=== PATIENT | male | born 1925 | race Two or more races ===

== ENCOUNTER 2016-11-10 22:19 | Inpatient (IN) | payer MEDICARE, MEDICAID ==
[~2016-11-10] VITALS: Ht 182.9 cm; Wt 74.8 kg
[2016-11-10] MEDS ORDERED: MORPHINE SULFATE INJ 2 MG/ML DISP.SYRIN ONE (23:30)
[2016-11-10] MEDS ORDERED: MORPHINE SULFATE INJ 2 MG/ML DISP.SYRIN IV ONE (23:30)
[2016-11-10 23:38] LABS: BASOPHILS % (AUTO) 0.2 % (0.0-2.0); DIFF TOTAL % 100 %; EOSINOPHILS # (AUTO) 0.1 /CMM (0.0-0.7); EOSINOPHILS % (AUTO) 1.7 % (0.0-6.0); HEMATOCRIT 34 % (39-51); HEMOGLOBIN 11.5 g/dL (13.5-17.5); LYMPHOCYTES # (AUTO) 1.3 /CMM (0.8-4.8); LYMPHOCYTES % (AUTO) 18.9 % (20.0-44.0); MEAN CORPUSCULAR HEMOGLOBIN 32 PG (26.0-33.0); MEAN CORPUSCULAR HGB CONC 34 g/dl (31.0-36.0); MEAN CORPUSCULAR VOLUME 96 fL (80-96); MONOCYTES # (AUTO) 0.6 /CMM (0.1-1.30); MONOCYTES % (AUTO) 8.8 % (2.0-12.0); NEUTROPHILS % (AUTO) 70.4 % (43.0-81.0); PLATELET COUNT (AUTO) 243 /CMM (150-450); RED BLOOD CELL COUNT(AUTO) 3.55 MIL/uL (4.5-6.0); WHITE BLOOD COUNT (AUTO) 7.1 K/uL (4.3-11.0)
[2016-11-10] MEDS ORDERED: CHOL20004 PO (23:44)
[2016-11-10] MEDS ORDERED: PRAV20TA4 PO (23:44)
[2016-11-10] MEDS ORDERED: ACET500C4 PO (23:44)
[2016-11-10] MEDS ORDERED: ASPI-605 PO (23:44)
[2016-11-10] MEDS ORDERED: MEMA10TA PO (23:44)
[2016-11-10 23:45] LABS: CALCIUM, SERUM 8.5 mg/dL (8.5-10.1); CREATININE 1.2 mg/dL (0.6-1.3); POTASSIUM 3.5 mmol/L (3.5-5.1)
[2016-11-11] VITALS (9 sets, daily range): BP systolic 154–197; BP diastolic 77–101
[2016-11-11] LABS: INR 1.02 (0.87-1.13)
[2016-11-11] MEDS ORDERED: ENOXAPARIN SODIUM 40 MG/0.4 ML DISP.SYRIN SQ SCH (01:30)
[2016-11-11] MEDS ORDERED: ENOXAPARIN SODIUM 40 MG/0.4 ML DISP.SYRIN SQ ONE (01:56)
[2016-11-11] MEDS ORDERED: HYDROCODONE/APAP 5/325MG 1 EACH TABLET ONE (01:56)
[2016-11-11] MEDS: HYDROCODONE/APAP 5/325MG 1 EACH TABLET PO PRN ×3 (02:18→12:13)
[2016-11-11 08:11] LABS: ALBUMIN 3.4 g/dL (3.4-5.0); BILIRUBIN,TOTAL 0.5 mg/dL (0.2-1.0); CALCIUM, SERUM 8.6 mg/dL (8.5-10.1); CREATININE 0.9 mg/dL (0.6-1.3); POTASSIUM 3.9 mmol/L (3.5-5.1); TOTAL PROTEIN, SERUM 7.2 g/dL (6.4-8.2)
[2016-11-11 08:18] LABS: BASOPHILS % (AUTO) 0.3 % (0.0-2.0); DIFF TOTAL % 100 %; EOSINOPHILS # (AUTO) 0.2 /CMM (0.0-0.7); EOSINOPHILS % (AUTO) 2.3 % (0.0-6.0); HEMATOCRIT 38 % (39-51); HEMOGLOBIN 12.8 g/dL (13.5-17.5); LYMPHOCYTES # (AUTO) 1.1 /CMM (0.8-4.8); MEAN CORPUSCULAR HEMOGLOBIN 32 PG (26.0-33.0); MEAN CORPUSCULAR HGB CONC 33 g/dl (31.0-36.0); MEAN CORPUSCULAR VOLUME 95 fL (80-96); MONOCYTES # (AUTO) 0.7 /CMM (0.1-1.30); MONOCYTES % (AUTO) 9.3 % (2.0-12.0); NEUTROPHILS # (AUTO) 5.1 /CMM (1.8-8.9); NEUTROPHILS % (AUTO) 73.1 % (43.0-81.0); PLATELET COUNT (AUTO) 268 /CMM (150-450); RED BLOOD CELL COUNT(AUTO) 4.03 MIL/uL (4.5-6.0)
[2016-11-11] MEDS ORDERED: MEMA14CA PO (08:38)
[2016-11-11] MEDS ORDERED: CHOL100044 PO (08:38)
[2016-11-11] MEDS ORDERED: MISCELLANEOUS MED 1 EA EA XX ONE (12:00)
[2016-11-11] MEDS ORDERED: LABETALOL HCL (100MG) 100 MG TABLET PO PRN (15:30)
[2016-11-11] MEDS: AMLODIPINE BESYLATE 5 MG TABLET PO SCH (15:31)
[2016-11-11] MEDS: HYDROMORPHONE 1 MG/1 ML DISP.SYRIN IV PRN (16:44)
[2016-11-11] MEDS: MEMANTINE HCL 5 MG TABLET PO SCH (16:45)
[2016-11-11] MEDS ORDERED: BACI/NEOM/POLY B OINT PKT 1 UDPKT PACKET TP SCH (17:00)
[2016-11-11] MEDS: ONDANSETRON HCL/PF 4 MG/2 ML VIAL IV PRN (18:14)
[2016-11-11] MEDS ORDERED: ALBUTEROL HALF STRENGTH 1.25 MG/3 ML VIAL.NEB NEB PRN (20:00)
[2016-11-11] MEDS: ATORVASTATIN 10 MG TABLET PO SCH (21:33)
[2016-11-11] MEDS: ENOXAPARIN SODIUM 40 MG/0.4 ML DISP.SYRIN SQ SCH (21:37)
[2016-11-11] MEDS ORDERED: PRAVASTATIN SODIUM 20 MG TABLET PO SCH (22:00)
[2016-11-12] MEDS: HYDROCODONE/APAP 5/325MG 1 EACH TABLET PO PRN ×3 (04:21→22:45)
[2016-11-12 08:00] VITALS: BP 145/67
[2016-11-12] MEDS: ASPIRIN EC 81 MG TABLET.DR PO SCH (08:27)
[2016-11-12] MEDS: AMLODIPINE BESYLATE 5 MG TABLET PO SCH (08:27)
[2016-11-12] MEDS: CHOLECALCIFEROL 1,000 UNIT TABLET (VIT D3) PO SCH (08:28)
[2016-11-12] MEDS: SENNOSIDES 8.6 MG TABLET PO SCH (08:29)
[2016-11-12] MEDS: MEMANTINE HCL 5 MG TABLET PO SCH ×2 (08:29→16:48)
[2016-11-12] MEDS: NEOMY SULF/BACITRAC ZN/POLY 15 GM TUBE TP SCH (10:35)
[2016-11-12] MEDS: HYDROMORPHONE 1 MG/1 ML DISP.SYRIN IV PRN ×2 (12:26→16:48)
[2016-11-12] MEDS: ONDANSETRON HCL/PF 4 MG/2 ML VIAL IV PRN ×2 (13:15→18:27)
[2016-11-12 16:00] VITALS: BP 136/66
[2016-11-12 20:00] VITALS: BP 148/77
[2016-11-12] MEDS: ENOXAPARIN SODIUM 40 MG/0.4 ML DISP.SYRIN SQ SCH (21:12)
[2016-11-12] MEDS: ATORVASTATIN 10 MG TABLET PO SCH (21:16)
[2016-11-13 08:00] VITALS: BP 153/90
[2016-11-13] MEDS: NEOMY SULF/BACITRAC ZN/POLY 15 GM TUBE TP SCH (08:21)
[2016-11-13] MEDS: CHOLECALCIFEROL 1,000 UNIT TABLET (VIT D3) PO SCH (08:22)
[2016-11-13] MEDS: MEMANTINE HCL 5 MG TABLET PO SCH ×2 (08:22→17:19)
[2016-11-13] MEDS: SENNOSIDES 8.6 MG TABLET PO SCH (08:22)
[2016-11-13] MEDS: AMLODIPINE BESYLATE 5 MG TABLET PO SCH (08:22)
[2016-11-13] MEDS: ASPIRIN EC 81 MG TABLET.DR PO SCH (08:22)
[2016-11-13] MEDS: HYDROCODONE/APAP 5/325MG 1 EACH TABLET PO PRN ×4 (08:25→21:43)
[2016-11-13] MEDS: ONDANSETRON HCL/PF 4 MG/2 ML VIAL IV PRN ×2 (11:37→17:19)
[2016-11-13] MEDS: HYDROMORPHONE 1 MG/1 ML DISP.SYRIN IV PRN ×2 (14:55→22:26)
[2016-11-13 16:00] VITALS: BP_SYST 125; BP_DIAS 51; BP_DIAS 61
[2016-11-13 20:00] VITALS: BP 137/72
[2016-11-13 20:35] VITALS: BP 137/72
[2016-11-13] MEDS: ATORVASTATIN 10 MG TABLET PO SCH (21:43)
[2016-11-13] MEDS: ENOXAPARIN SODIUM 40 MG/0.4 ML DISP.SYRIN SQ SCH (21:49)
[2016-11-14] MEDS: HYDROMORPHONE 1 MG/1 ML DISP.SYRIN IV PRN ×2 (00:22→14:17)
[2016-11-14] MEDS: HYDROCODONE/APAP 5/325MG 1 EACH TABLET PO PRN ×3 (01:58→18:34)
[2016-11-14 07:44] LABS: CALCIUM, SERUM 8.7 mg/dL (8.5-10.1); CREATININE 1.2 mg/dL (0.6-1.3); POTASSIUM 4.2 mmol/L (3.5-5.1)
[2016-11-14 07:51] LABS: DIFF TOTAL % 100 %; EOSINOPHILS % (AUTO) 0.1 % (0.0-6.0); HEMATOCRIT 38 % (39-51); HEMOGLOBIN 12.9 g/dL (13.5-17.5); LYMPHOCYTES # (AUTO) 0.4 /CMM (0.8-4.8); LYMPHOCYTES % (AUTO) 5.8 % (20.0-44.0); MEAN CORPUSCULAR HEMOGLOBIN 32 PG (26.0-33.0); MEAN CORPUSCULAR HGB CONC 34 g/dl (31.0-36.0); MEAN CORPUSCULAR VOLUME 95 fL (80-96); MONOCYTES # (AUTO) 0.5 /CMM (0.1-1.30); MONOCYTES % (AUTO) 7.1 % (2.0-12.0); NEUTROPHILS # (AUTO) 6.3 /CMM (1.8-8.9); PLATELET COUNT (AUTO) 231 /CMM (150-450); RED BLOOD CELL COUNT(AUTO) 3.96 MIL/uL (4.5-6.0); WHITE BLOOD COUNT (AUTO) 7.2 K/uL (4.3-11.0)
[2016-11-14 08:48] VITALS: BP 91/49
[2016-11-14] MEDS: ASPIRIN EC 81 MG TABLET.DR PO SCH (08:58)
[2016-11-14] MEDS: CHOLECALCIFEROL 1,000 UNIT TABLET (VIT D3) PO SCH (08:59)
[2016-11-14] MEDS: SENNOSIDES 8.6 MG TABLET PO SCH (08:59)
[2016-11-14] MEDS: AMLODIPINE BESYLATE 5 MG TABLET PO SCH (09:00)
[2016-11-14] MEDS: MEMANTINE HCL 5 MG TABLET PO SCH (09:00)
[2016-11-14] MEDS: NEOMY SULF/BACITRAC ZN/POLY 15 GM TUBE TP SCH (09:04)
[2016-11-14 10:00] VITALS: BP 91/49
[2016-11-14 15:32] LABS: BAND % (MANUAL) 23 % (0.0-5.0); LYMPHOCYTES % (MANUAL) 12 % (16-48)
[2016-11-14 16:00] VITALS: BP 113/66
== END 2016-11-14 18:57 | DRG 535 ==
LOC: ER 22:23 → MED 23:52
PROVIDERS: ADMIT Internal Medicine; ATTEND Internal Medicine
DX: S72.111A Displaced fracture of greater trochanter of right femur, initial encounter for closed fracture (principal); G93.40 Encephalopathy, unspecified; R64 Cachexia; N17.9 Acute kidney failure, unspecified; E46 Unspecified protein-calorie malnutrition; I10 Essential (primary) hypertension; N40.0 Benign prostatic hyperplasia without lower urinary tract symptoms; W19.XXXA Unspecified fall, initial encounter; E55.9 Vitamin D deficiency, unspecified; G30.9 Alzheimer's disease, unspecified; F02.80 Dementia in other diseases classified elsewhere, unspecified severity, without behavioral disturbance, psychotic disturbance, mood disturbance, and anxiety; J44.9 Chronic obstructive pulmonary disease, unspecified; I25.10 Atherosclerotic heart disease of native coronary artery without angina pectoris; Y93.9 Activity, unspecified; Y92.89 Other specified places as the place of occurrence of the external cause; Y99.9 Unspecified external cause status; H90.5 Unspecified sensorineural hearing loss; Z68.22 Body mass index [BMI] 22.0-22.9, adult
CPT/HCPCS: 36415; 71010-TC; 73510-TC; 80048-TC; 80053-TC; 85025-TC; 85730-TC; 87081-TC; 97001-TC; 97003-TC; 97110-TC; 97530-TC; A4606; J1170; J1650; J2270; J2405; Z7610